=== PATIENT | female | born 1970 | race Two or more races ===

== ENCOUNTER → 2018-03-18 | Emergency (ER) | payer OTHER ==
[~2018-03-18] VITALS: Ht 165.1 cm; Wt 72.6 kg
[~2018-03-18] MED LIST: ACETAMINOPHEN500 M1; BACTRIM DS TAB1 EACH PO; URIN D.S. TABL1 EACH PO
== END | disposition home or self-care (01) ==
LOC: ER 00:10
DX: N39.0 Urinary tract infection, site not specified (principal); B96.29 Other Escherichia coli [E. coli] as the cause of diseases classified elsewhere